=== PATIENT | male | born 1985 | race Two or more races ===

== ENCOUNTER → 2024-06-22 | Outpatient (CLI) | payer BC, SELFPAY ==
[2024-06-22 08:40] LABS: Basophils % (Auto) 0 % (0-2.5); Eosinophils # (Auto) 0.2 Thou/mm3 (0.0-0.5); Eosinophils % (Auto) 3 % (0-10); Hematocrit 42.8 % (41.0-53.0); Hemoglobin 15.2 g/dL (13.5-16.0); Immature Granulocytes % (Auto) 0 % (0-0); Immature Granulocytes Auto 0.01 Thou/mm3 (0.00-0.00); Lymphocytes # (Auto) 2.5 Thou/mm3 (1.0-4.8); Lymphocytes % (Auto) 40 % (10-50); Mean Corpuscular HGB Conc 35.5 g/dl (31.0-37.0); Mean Corpuscular Hemoglobin 30.6 pg (25.0-35.0); Mean Corpuscular Volume 86 fL (80-100); Monocytes # (Auto) 0.5 Thou/mm3 (0.0-0.8); Monocytes % (Auto) 8 % (0-12); Neutrophils % (Auto) 49 % (37-80); Nucleated Red Blood Cell % 0 /100 WBC (0); Platelet Count 284 Thou/mm3 (140-440); RDW Standard Deviation 40.5 fL (35.1-43.9); Red Blood Count 4.96 Miln/mm3 (4.50-5.90); White Blood Count 6.2 Thou/mm3 (3.8-10.6)
[2024-06-22 09:11] LABS: Anion Gap 7 (7-16); BUN/Creatinine Ratio 18 Ratio (12-20); Blood Urea Nitrogen 14 mg/dL (9-23); Carbon Dioxide 20.9 mMol/L (20.0-31.0); Chloride 109 mMol/L (98-107); Creatinine (Component) 0.8 mg/dL (0.6-1.3); Potassium 4.4 mMol/L (3.4-5.1); Sodium 137 mMol/L (136-145)
[2024-06-22 09:12] LABS: Alanine Aminotransferase 130 U/L (10-49); Albumin, Serum 4.5 gm/dL (3.5-5.0); Albumin/Globulin Ratio 1.7 (1.2-2.2); Alkaline Phosphatase 77 U/L (46-116); Aspartate Amino Transferase 53 U/L (0-34); Bilirubin,Total 0.4 mg/dL (0.3-1.2); Calcium 9.5 mg/dL (8.3-10.6); Calcium (Corrected) 9.5 mg/dL (8.5-10.1); Cardiac Risk Estimate 3.9 RATIO (4.0-6.7); Cholesterol 163 mg/dL (132-200); Globulin 2.7 gm/dL (2.3-3.5); Glucose 106 mg/dL (74-106); HDL Cholesterol 42 mg/dL (40-60); LDL Cholesterol,Calculated 87 mg/dL (0-130); Osmolality,Calculated 274 (275-295); Total Protein 7.2 gm/dL (5.7-8.2); Triglycerides 172 mg/dL (30-150); eGFR > 60 See Note
[2024-07-05 06:52] LABS: Albumin 4.2 g/dL (3.6-5.1); Cortisol,total,LC/MS/MS* 10.4 mcg/dL; SHBG 7 nmol/L (10-50); Testosterone, Bioavailable 120.2 ng/dL (110.0-575.0); Testosterone, Free 62.4 pg/mL (46.0-224.0); Testosterone,Total 192 ng/dL (250-1100)
== END | disposition home or self-care (01) ==
PROVIDERS: PCP Chiropractor; Referring Provider Chiropractor; Visit Provider Chiropractor
DX: R79.9 Abnormal finding of blood chemistry, unspecified (principal); Z13.228 Encounter for screening for other metabolic disorders
CPT/HCPCS: 36415; 80053; 80061; 82040; 82533; 84270; 84403; 85025

== ENCOUNTER → 2024-08-30 | Outpatient (CLI) | payer BC, SELFPAY ==
[2024-08-30 09:23] LABS: Glucose Estimated Average 123 mg/dL (80-131); Hemoglobin A1C 5.9 % Hgb (4.8-6.0)
[2024-08-30 09:24] LABS: Glucose,Fasting 105 mg/dL (74-106)
[2024-08-30 09:31] LABS: Free T4 (Free Thyroxine) 1.12 ng/dL (0.89-1.76); Thyroid Stimulating Hormone 1.97 uIU/mL (0.55-4.78)
== END | disposition home or self-care (01) ==
PROVIDERS: PCP Family Medicine; Referring Provider Chiropractor; Visit Provider Chiropractor
DX: Z13.1 Encounter for screening for diabetes mellitus (principal)
CPT/HCPCS: 36415; 82947; 83036; 84439; 84443

== ENCOUNTER → 2025-07-11 | Outpatient (CLI) | payer BC, SELFPAY ==
[2025-07-11 09:18] LABS: Misc Send Out* See Sep Rpt
[2025-07-11 09:29] LABS: Basophils # (Auto) 0.0 Thou/mm3 (0.0-0.2); Basophils % (Auto) 0 % (0-2.5); Eosinophils # (Auto) 0.2 Thou/mm3 (0.0-0.5); Eosinophils % (Auto) 3 % (0-10); Hematocrit 45.3 % (41.0-53.0); Hemoglobin 16.0 g/dL (13.5-16.0); Immature Granulocytes Auto 0.02 Thou/mm3 (0.00-0.00); Lymphocytes # (Auto) 2.2 Thou/mm3 (1.0-4.8); Lymphocytes % (Auto) 26 % (10-50); Mean Corpuscular HGB Conc 35.3 g/dl (31.0-37.0); Mean Corpuscular Hemoglobin 30.9 pg (25.0-35.0); Mean Corpuscular Volume 88 fL (80-100); Monocytes # (Auto) 0.5 Thou/mm3 (0.0-0.8); Monocytes % (Auto) 6 % (0-12); Neutrophils # (Auto) 5.5 Thou/mm3 (1.8-7.7); Neutrophils % (Auto) 65 % (37-80); Nucleated Red Blood Cell # 0.00 Thou/mm3 (0.00-0.00); Nucleated Red Blood Cell % 0 /100 WBC (0); Platelet Count 287 Thou/mm3 (140-440); RDW Standard Deviation 41.1 fL (35.1-43.9); Red Blood Count 5.17 Miln/mm3 (4.50-5.90); White Blood Count 8.6 Thou/mm3 (3.8-10.6)
[2025-07-11 09:48] LABS: Glucose Estimated Average 128 mg/dL (80-131); Hemoglobin A1C 6.1 % Hgb (4.8-6.0)
[2025-07-11 09:50] LABS: Alanine Aminotransferase 155 U/L (10-49); Albumin, Serum 5.0 gm/dL (3.5-5.0); Albumin/Globulin Ratio 1.7 (1.2-2.2); Alkaline Phosphatase 79 U/L (46-116); Anion Gap 11 (7-16); Aspartate Amino Transferase 52 U/L (0-34); BUN/Creatinine Ratio 19 Ratio (12-20); Bilirubin,Total 0.4 mg/dL (0.3-1.2); Blood Urea Nitrogen 15 mg/dL (9-23); Calcium 9.5 mg/dL (8.3-10.6); Calcium (Corrected) 9.5 mg/dL (8.5-10.1); Carbon Dioxide 21.6 mMol/L (20.0-31.0); Chloride 108 mMol/L (98-107); Creatinine (Component) 0.8 mg/dL (0.6-1.3); Free T4 (Free Thyroxine) 1.20 ng/dL (0.89-1.76); Globulin 3.0 gm/dL (2.3-3.5); Glucose 103 mg/dL (74-106); Glucose,Fasting 103 mg/dL (74-106); Osmolality,Calculated 282 (275-295); Potassium 4.2 mMol/L (3.4-5.1); Sodium 141 mMol/L (136-145); Thyroid Stimulating Hormone 1.62 uIU/mL (0.55-4.78); Total Protein 8.0 gm/dL (5.7-8.2); eGFR > 60 See Note
[2025-07-11 10:05] LABS: Cardiac Risk Estimate 3.8 RATIO (4.0-6.7); Cholesterol 184 mg/dL (132-200); HDL Cholesterol 49 mg/dL (40-60); LDL Cholesterol,Calculated 99 mg/dL (0-130); Triglycerides 181 mg/dL (30-150)
[2025-07-19 06:55] LABS: Cortisol,total,LC/MS/MS* 7.4 mcg/dL; Testosterone, Free,Dialysis 45.7 pg/mL (35.0-155.0); Testosterone, Total, Dialysis 180 ng/dL (250-1100)
== END | disposition home or self-care (01) ==
PROVIDERS: Referring Provider Chiropractor; Visit Provider Chiropractor
DX: R79.9 Abnormal finding of blood chemistry, unspecified (principal); Z13.228 Encounter for screening for other metabolic disorders; R73.09 Other abnormal glucose; Z13.29 Encounter for screening for other suspected endocrine disorder; Z01.82 Encounter for allergy testing
CPT/HCPCS: 36415; 80053; 80061; 82533; 82947; 83036; 84402; 84403; 84439; 84443; 85025; 86003; 86008